=== PATIENT | female | born 1995 | race Caucasian/White ===

== ENCOUNTER → 2017-03-01 | Outpatient (CLI) | payer BC ==
[~2017-03-01] MED LIST: ALBU1AER9 INH; ALL60 PO; BCPILLS PO; FLVHFAUNK INH
[2017-03-03 01:52] LABS: CHLAMYDIA TRACH RNA*** NOT DETECTED (NOT DETECTED); GC (NEIS GONORRHOEAE)RNA** NOT DETECTED (NOT DETECTED)
== END | disposition home or self-care (01) ==
LOC: C.LABSPEC 11:40
PROVIDERS: ATTEND Physician Assistant
DX: Z01.419 Encounter for gynecological examination (general) (routine) without abnormal findings (principal)

== ENCOUNTER → 2017-03-01 | Outpatient (CLI) | payer BC | END | disposition home or self-care (01) | LOC: C.PAPS 10:58 | PROVIDERS: ATTEND Physician Assistant | DX: Z01.419 Encounter for gynecological examination (general) (routine) without abnormal findings (principal) ==

== ENCOUNTER → 2017-03-08 | Outpatient (CLI) | payer BC ==
--- NOTE | 2017-03-08 12:25 | DIAGNOSTIC IMAGING REPORT ---
FUSION CT SINUSES W/O CLINICAL HISTORY: J32.[address] SEGUNDO... PLEASE DO THIS A FUS COMPARISON STUDY: No previous studies for comparison. FINDINGS: Helical images were acquired in the transverse plane. Sagittal and coronal reformatted images were reviewed. Visualized portions of the intracranial contents are unremarkable. There is no hydrocephalus. The mastoid air cells are symmetrically aerated. The middle ear cavities are well aerated. There is partial opacification of the right maxillary sinus. There is mild to moderate mucosal thickening within the left maxillary sinus. There is minimal sphenoid sinus mucosal thickening. There is mild ethmoid air cell mucosal thickening. There is mild left frontal sinus mucosal thickening. There is a bony defect involving the medial wall the right maxillary sinus. It is unclear whether this is developmental, or acquired. There is partial pneumatization of the middle turbinates. Left ostomy unit is occluded. The right ostiomeatal unit is difficult to define. There is mild nasal septal deviation to the right. The ethmoid notches are protected The left olfactory groove measures 7 mm. The right olfactory groove measures 5 mm. The right nasoethmoidal recess is patent. There is narrowing of the left nasoethmoidal recess. The right frontal recess is patent. There is narrowing of the left frontal recess. IMPRESSION: 1. Pansinus disease most pronounced the right maxillary sinus 2. Bony defect involving the medial wall the right maxillary sinus. It is unclear whether this is acquired or congenital 3. Soft tissue obstruction of the left ostiomeatal unit 4. Partial pneumatization of middle turbinates 5. Narrowing of the left frontal and ethmoidal recesses Electronically signed by: Xander Estes M.D. 03/08/2017 12:24 PM Dictated Date/Time: 03/08/2017 12:14 PM
== END | disposition home or self-care (01) ==
LOC: C.CTS 11:49
DX: J32.9 Chronic sinusitis, unspecified (principal)

== ENCOUNTER → 2017-08-02 | Outpatient (CLI) | payer BC ==
[~2017-08-02] MED LIST changes: -ALBU1AER9 INH; -ALL60 PO; +FEXO1TAB49 PO; -FLVHFAUNK INH; +VNTHFA/IN INH
[2017-08-02 14:40] LABS: BASO % 0.6 %; BASO ABS # 0.04 K/uL (0-0.2); EOS % 3.5 %; EOS ABS # 0.23 K/uL (0-0.5); HEMATOCRIT 36.8 % (37-47); HEMOGLOBIN 12.5 g/dL (12.0-16.0); IG# 0.01 K/uL (0.00-0.02); LYMPH ABS # 1.84 K/uL (1.2-3.4); MEAN CELL VOLUME 84.8 fL (80-100); MEAN CORPUSCULAR HEMOGLOBIN 28.8 pg (25-34); MEAN PLATELET VOLUME 10.7 fL (7.4-10.4); MONO % 5.5 %; MONO ABS # 0.36 K/uL (0.11-0.59); NEUT % 62.2 %; NEUT ABS # 4.08 K/uL (1.4-6.5); PLATELET COUNT 197 K/uL (130-400); RED CELL DISTRIBUTION WIDTH CV 12.4 % (11.5-14.5); RED CELL DISTRIBUTION WIDTH SD 38.7 fL (36.4-46.3); WHITE BLOOD COUNT 6.56 K/uL (4.8-10.8)
[2017-08-02 14:46] LABS: PTT PATIENT 24.5 SECONDS (21.0-31.0)
[2017-08-02 15:04] LABS: POTASSIUM 3.5 mmol/L (3.5-5.1)
== END | disposition home or self-care (01) ==
LOC: C.LAB 13:05
DX: Z01.818 Encounter for other preprocedural examination (principal)

== ENCOUNTER → 2017-08-07 | Day surgery (SDC) | payer BC ==
[2017-06-23 14:49] VITALS: Ht 177.8 cm; Wt 104.5 kg
[~2017-08-07] VITALS: Ht 177.8 cm; Wt 104.5 kg
[~2017-08-07] MED LIST changes: +ATROPINE SULFATE 0.1 MG/ML 5ML SYR IV PRN; +BACITRACIN/POLYMYXIN B OINT 90 APPLN/28.4 GM TUBE EXT ONE; +CEFAZOLIN 2000MG IV PUSH 15 ML IV SCH; +CEFAZOLIN SOD 2000MG/15 ML IV PUSH ONE; +CETI10TA84 PO; +DEXAMETHASONE SOD INJ 4 MG/ML VIAL ONE; +ESMOLOL HCL 10 MG/ML 10 ML VIAL ONE; +EpHEDrine SULFATE INJ 50 MG/ML AMP IV PRN; +EpINEphrine INJ 1MG/ML AMP 1 MG/ML AMP ONE; +FENTANYL CITRATE INJ 50 MCG/1 ML 2 ML VIAL IV PRN; +FENTANYL CITRATE INJ 50 MCG/1 ML 2 ML VIAL ONE; +GLYCOPYRROLATE INJ 0.2 MG/ML VIAL ONE; +HYDROCODONE/ACETAMIN 5/325MG TAB PO PRN; +LACTATED RINGER'S 1000ML 1,000 ML IV SCH; +LIDOCAINE 4% MPF SOAK 5 ML = 1 DOSE ONE; +LIDOCAINE HCL 2% 2 ML VIAL (20MG/ML) ONE; +LIDOCAINE/EPINEPHRINE 1% 20 ML VIAL ONE; +MIDAZOLAM HCL 1 MG/ML 2ML VIAL ONE; +NEOSTIGMINE METHYLSULFATE 5 MG/5 ML SYR ONE; +ONDANSETRON INJ 2 MG/ML 2 ML VIAL IV PRN; +ONDANSETRON INJ 2 MG/ML 2 ML VIAL ONE; +OXYMETAZOLINE HCL 0.05% NA SPR 15 ML BTL ONE; +OXYMETAZOLINE HCL 0.05% NA SPR 15 ML BTL PRN; +OXYMETAZOLINE HCL 0.05% NA SPR 15 ML BTL SCH; +PROPOFOL IV EMULSION 10 MG/ML 20 ML VIAL ONE; +ROCURONIUM BROMIDE 10 MG/ML 5 ML VIAL ONE; +SCOPOLAMINE 1.5 MG TDSY TD ONE; +TRIAMCINOLONE ACET 40 MG/ML VIAL ONE
--- NOTE | 2017-08-07 10:26 | History and Physical: Surg Cnt ---
History & Physical Date August 07, 2017. Chief Complaint ADENOID HYPERTROPHY, CHRONIC SINUSITIS, SEPTAL DEVIATION, BILATERAL INFERIOR TURBINATE HYPERTROPHY History of Present Illness The patient is a 21 year old female with complaints of ADENOID HYPERTROPHY, CHRONIC SINUSITIS, SEPTAL DEVIATION, BILATERAL INFERIOR TURBINATE HYPERTROPHY WITH SYMPTOMS DESPITE MAXIMAL MEDICAL RX. 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, S/P OPEN REPAIR OF HAND FX, S/P WRIST SURGERY Allergies Coded Allergies: Sulfa Drugs (Unverified Allergy, Severe, HIVES, 08/07/17) Sulfamethoxazole (Unverified Allergy, Unknown, HIVES, 08/07/17) Trimethoprim (Unverified Allergy, Unknown, HIVES, 08/07/17) Home Medications Scheduled Control Pills ( Control Pills), 1 TAB PO DAILY Cetirizine (Zyrtec), 10 MG PO DAILY Scheduled PRN Albuterol Hfa (Ventolin Hfa), 2 PUFFS INH Q6H PRN for Shortness of Breath Physical Examination Skin: warm/dry, no rash Eyes: normal inspection, EOMI, sclerae normal ENT: + pertinent finding (4+ ADENOIDS, B ITH AND B MTH, MILD R DNS) Head: normocephalic, atraumatic Neck: supple, no adenopathy, trachea midline Respiratory/Chest: lungs clear, normal breath sounds, no respiratory distress Cardiovascular: regular rate, rhythm, no edema, no murmur Neurologic/Psych: no motor/sensory deficits, alert, normal reflexes, oriented x 3 Diagnosis ADENOID HYPERTROPHY, CHRONIC SINUSITIS, SEPTAL DEVIATION, BILATERAL INFERIOR TURBINATE HYPERTROPHY Plan of Treatment IMAGE-GUIDED B FESS AND INFERIOR TURBINATE REDUCTION, SEPTOPLASTY
--- NOTE | 2017-08-07 13:13 | [facility] Operative Report ---
Operative Report Operative Date August 07, 2017. Pre-Operative Diagnosis Chronic sinusitis, Deviated Septum, Bilateral Inferior Turbinate Hypertrophy, Adenoid Hypertrophy Post-Operative Diagnosis Same Procedure(s) Performed Image Guided Bilateral Endoscopic Sinus Surgery, Septoplasty, Bilateral Inferior Turbinate Reduction, Adenoidectomy Surgeon Dr. Silva Carry Out Clerk And Shelf Stocker Surgeon(s) None Estimated Blood Loss 150ML Findings 1. 4+ ADENOIDS 2. SEVERE B RANDI BULLOSAE 3. SEVERE B DNS 4. SEVERE B ITH 5. PUS IN R MAX SINUS 6. POLYPOID MPT INVOLVING L FRONTAL, B MAX, AND B ETHMOID SINUSES Specimens None Anesthesia Type General I attest to the content of the Intraoperative Record and any orders documented therein. Any exceptions are noted below.
--- NOTE | 2017-08-07 13:14 | Discharge Instructions ---
Discharge Instructions Date of Service August 07, 2017. Admission Reason for Admission: Chronic Sinusitis, Deviated Septum, Adenoid Hyper Discharge Discharge Diagnosis / Problem: SAME Discharge Goals Goal(s): Therapeutic intervention Activity Recommendations Activity Limitations: as noted below LIGHT ACTIVITY AND NO NOSE BLOWING FOR 2 WEEKS; NO DRIVING WHILE ON NORCO . Current Hospital Diet Patient's current hospital diet: Discharge Diet Recommended Diet: Regular Diet Procedures Procedures Performed: Image Guided Bilateral Endoscopic Sinus Surgery, Septoplasty, Bilateral Inferior Turbinate Reduction, Adenoidectomy Pending Studies Studies pending at discharge: no Medical Emergencies . Who to Call and When: Medical Emergencies: If at any time you feel your situation is an emergency, please call 911 immediately. . Non-Emergent Contact Non-Emergency issues call your: Surgeon . . "Provider Documentation" section prepared by Oliver Silva. .
--- NOTE | 2017-08-07 14:10 | OPERATIVE REPORT ---
DATE OF OPERATION: 08/07/2017 PREOPERATIVE DIAGNOSES: 1. Adenoid hypertrophy. 2. Chronic sinusitis. 3. Bilateral imani bullosa. 4. Bilateral septal deviation. 5. Bilateral inferior turbinate hypertrophy. POSTOPERATIVE DIAGNOSES: 1. Adenoid hypertrophy. 2. Chronic sinusitis. 3. Bilateral imani bullosa. 4. Bilateral septal deviation. 5. Bilateral inferior turbinate hypertrophy. PROCEDURES: 1. Adenoidectomy. 2. Adviqo fusion image-guided endoscopic sinus surgery consisting of: 1. Bilateral endoscopic imani bullosa resection. 2. Bilateral maxillary antrostomies. 3. Bilateral complete ethmoidectomies. 4. Balloon sinuplasty-assisted left frontal sinusotomy. 5. Septoplasty. 6. Bilateral inferior turbinate outfracture and turbinoplasty. SURGEON: Oliver Silva MD ANESTHESIA: General endotracheal. ESTIMATED BLOOD LOSS: 150 mL. FINDINGS: 1. Normal palate. 2. 4+ adenoids with complete obstruction of the choanae with adenoid tissue. 3. Severe bilateral imani bullosa. 4. Severe bilateral septal deviation. 5. Severe bilateral inferior turbinate hypertrophy. 6. Purulence within the right maxillary sinus. 7. Polypoid mucosal thickening involving the left frontal, bilateral maxillary, and bilateral ethmoid sinuses. SPECIMENS: None. COMPLICATIONS: None. INDICATIONS FOR THE PROCEDURE: The patient is a 21-year-old female with the above-mentioned history which has been unresponsive to maximum medical therapy including systemic antibiotics, systemic steroids, and allergy medications. The patient presents for the above-mentioned procedures on an outpatient elective basis. DETAILS OF THE PROCEDURE: After informed consent had been obtained from the patient and family, the patient was wheeled to the operating room and placed on the operating table in supine position. Monitors were placed. After induction of general endotracheal anesthesia, the table was turned to 90 degrees and the patient's head and neck were gently extended. Antibiotic ointment was applied to the lips and a mouth gag was carefully inserted, opened, and stabilized on a roll of towels. The palate was inspected and found to be normal. A catheter was inserted into the left nasal cavity and this was used to elevate the soft palate and uvula. A laryngeal mirror was used to inspect the nasopharynx and the intraoperative findings were 4+ adenoid tissue with complete obstruction of the choanae and nasopharynx with adenoid tissue. Powered instrumentation using a curved RADenoid blade was used to remove the adenoid tissue. Afrin-soaked tonsil balls were then placed within the nasopharynx. After allowing adequate time for hemostasis, the tonsil balls were removed and suction Bovie electrocautery was used to achieve adequate hemostasis within the nasopharynx. The nasal cavities and nasopharynx were irrigated and suctioned. Hemostasis was confirmed. The catheter and mouth gag were then removed. The patient was then placed in the neutral bed position. She was prepped in the usual fashion for image-guided endoscopic sinus surgery. The [employer] headset was placed over the forehead and was registered and calibrated and used throughout the case. The patient was noted to have severe right greater than left septal deviation and severe left greater than right inferior turbinate hypertrophy as well as severe bilateral middle turbinate hypertrophy with polypoid mucosa. The left side was first addressed. The left middle turbinate was injected with 1% lidocaine with 1:100,000 epinephrine. The lidocaine and epinephrine pledgets were then placed in the left middle meatus. The right side was then addressed in a similar fashion. The left-sided pledget was removed. A sickle knife was used to make a longitudinal incision of the middle turbinate and the lateral half of the middle turbinate was removed using straight Jean Paul-Cut forceps and powered instrumentation. There was a large imani bullosa filling most of the nasal cavity in the middle aspect. Straight Jean Paul-Cut forceps and powered instrumentation was used to perform the endoscopic imani bullosa resection. An uncinatectomy was then performed using a freer elevator, straight Jean Paul-Cut forceps, and powered instrumentation. The natural ostia of the maxillary sinus was identified and this was enlarged anteriorly, inferiorly, and posteriorly using backbiting forceps and powered instrumentation. A complete ethmoidectomy was then performed using powered instrumentation. Using a curved frontal sinus suction under image guidance, the left frontal sinus was then cannulated. The suction was removed and a #7 frontal sinus balloon was inserted and inflated to 12 atmospheres of pressure to dilate the frontal recess tract. Polypoid tissue was then removed from the left frontal sinus using powered instrumentation. A pledget was then placed in the left ethmoid cavity. The right side was then addressed in a similar fashion, however, on this side, a frontal sinusotomy was not performed. On this side, there was purulence within the right maxillary sinus which appeared to be somewhat hypoplastic. Of note, there was polypoid mucosal thickening involving all the above-mentioned paranasal sinuses. The patient had normal sphenoid sinuses on the CT scan as well as a normal right frontal sinus on the CT scan and therefore, the sinuses were not addressed. Septoplasty was then performed. The septum was injected with 1% lidocaine with 1:100,000 epinephrine. A #15 scalpel was used to make a left [place] incision through which the left-sided mucoperichondrial mucoperiosteal flap was elevated. A #15 scalpel was then used to incise the quadrangular cartilage with care to preserve a 1.5-cm dorsal and caudal strut and the right-sided mucoperichondrial mucoperiosteal flap was elevated through this cartilaginous incision. The patient has significant septal deviation to the left due to an inferior septal spur which started anteriorly and extended posteriorly and was comprised of both cartilage and bone. This was removed using a combination of Timothy swivel knife as well as V-shaped osteotome, mallet, and Carlos forceps. Most of the right-sided septal deviation was due to superior deviation both anteriorly and posteriorly due to the cartilage which was removed using the Timothy swivel knife and bone which was removed using Thompson-Reji forceps. The septal cavity was then suctioned. The left [place] incision was closed with several simple interrupted 4-0 chromic sutures. A 4-0 plain gut suture on a Mikey needle was then used to perform a quilting stitch of the mucoperichondrial mucoperiosteal flaps bilaterally to help prevent septal hematoma. A Uribe elevator was then used to infracture and subsequently outfracture the inferior turbinates bilaterally. The inferior turbinates were injected with 1% lidocaine with 1:100,000 epinephrine. A 2.0 mm turbinate blade using powered instrumentation was then used to perform bilateral inferior turbinoplasties in a submucosal fashion. Sinonasal cavities were then suctioned. A mixture of Stammberger nasal dressing 1:1 with Kenalog 40 mg per mL was then instilled into the ethmoid cavities/middle meati due to the nasal polyposis. An orogastric tube was placed and the stomach was suctioned free of air and stomach contents. This marked the end of the case. The patient tolerated the procedure well and there were no apparent complications. The patient was extubated and transferred to recovery room in stable condition. I attest to the content of the Intraoperative Record and any orders documented therein. Any exception s are noted below.
[2017-08-07 14:22] VITALS: TEMP 36.5
--- NOTE | 2017-08-07 14:50 | Anesthesia Progress Nt - [facility] ---
Anesthesia Post Op Note Date & Time August 07, 2017 at 14:50 Vital Signs Pain Intensity: 2 Vital Signs Past 12 Hours Date Time Temp Pulse Resp B/P (MAP) Pulse Ox O2 Delivery O2 Flow Rate FiO2 08/07/17 14:22 36.5 79 20 128/82 (97) 100 Room Air 08/07/17 14:16 77 10 08/07/17 14:16 79 10 98 08/07/17 14:15 140/83 08/07/17 14:13 36.5 84 12 140/83 99 Room Air 08/07/17 14:11 81 15 08/07/17 14:11 80 15 98 08/07/17 14:10 131/88 08/07/17 14:06 83 13 100 08/07/17 14:06 84 13 08/07/17 14:05 130/84 08/07/17 14:01 82 15 08/07/17 14:01 83 15 100 08/07/17 14:00 130/84 08/07/17 13:56 84 9 08/07/17 13:56 83 9 100 08/07/17 13:55 134/82 08/07/17 13:51 87 17 08/07/17 13:51 86 17 100 08/07/17 13:50 130/87 08/07/17 13:46 88 17 100 08/07/17 13:46 88 17 08/07/17 13:45 126/70 08/07/17 13:41 88 15 100 08/07/17 13:41 88 15 08/07/17 13:40 130/72 08/07/17 13:36 89 0 08/07/17 13:36 89 0 100 08/07/17 13:35 125/71 08/07/17 13:31 86 0 100 08/07/17 13:31 86 0 08/07/17 13:30 118/65 08/07/17 13:26 94 114/63 100 08/07/17 13:26 36.0 94 20 114/63 100 Humidified Oxygen 6 Mask 08/07/17 13:26 94 08/07/17 10:01 36.5 97 16 124/76 (92) 96 Room Air Notes Mental Status: alert / awake / arousable, participated in evaluation Pt Amnestic to Procedure: Yes Nausea / Vomiting: adequately controlled Pain: adequately controlled Airway Patency, RR, SpO2: stable & adequate BP & HR: stable & adequate Hydration State: stable & adequate Anesthetic Complications: no major complications apparent
[2017-08-07 14:59] VITALS: BP 140/85; PULSE 79; O2SAT 100
== END | disposition home or self-care (01) ==
LOC: X.SURG 09:45
DX: J35.2 Hypertrophy of adenoids (principal); J32.9 Chronic sinusitis, unspecified; J34.2 Deviated nasal septum; J34.3 Hypertrophy of nasal turbinates; J45.909 Unspecified asthma, uncomplicated; G47.33 Obstructive sleep apnea (adult) (pediatric); E66.9 Obesity, unspecified; Z86.19 Personal history of other infectious and parasitic diseases; Z88.2 Allergy status to sulfonamides; Z88.1 Allergy status to other antibiotic agents; Z79.3 Long term (current) use of hormonal contraceptives

== ENCOUNTER 2020-07-28 14:36 | Inpatient (IN) ==
[2020-07-28] MEDS ORDERED: miSOPROStoL 50 MCG TAB PO ONE (21:18)
[2020-07-28] MEDS ORDERED: OXYTOCIN 30 UNITS/500 ML BAG IV PRN (21:18)
[2020-07-28 21:50] LABS: Hematocrit (blood only) 32.5 % (37-47); Hemoglobin 11.4 g/dL (12.0-16.0); Mean Corpuscular Hemoglobin 28.8 pg (25-34); Mean Corpuscular Hgb Conc 35.1 g/dL (32-36); Mean Corpuscular Volume 82.1 fL (80-100); Mean Platelet Volume 11.3 fL (7.4-10.4); Platelet Count 187 K/uL (130-400); RDW Coefficient of Variation 14.5 % (11.5-14.5); RDW Standard Deviation 43.5 fL (36.4-46.3); Red Blood Count 3.96 M/uL (4.2-5.4); White Blood Count 8.66 K/uL (4.8-10.8)
[2020-07-29] MEDS: miSOPROStoL 50 MCG TAB PO SCH ×4 (02:26→16:42)
[2020-07-29] MEDS: LACTATED RINGER'S 1,000 ML IV PRN ×2 (04:15→09:30)
[2020-07-29] MEDS ORDERED: BUTORPHANOL TARTRATE 1 MG/ML VIAL IV PRN (04:26)
[2020-07-29] MEDS ORDERED: DINOPROSTONE 10 MG INSERT PV ONE (10:15)
[2020-07-29] MEDS ORDERED: OXYTOCIN 30 UNITS/500 ML BAG IV PRN (23:21)
[2020-07-30] MEDS: LACTATED RINGER'S 1,000 ML IV PRN ×5 (00:23→20:06)
[2020-07-30] MEDS ORDERED: SODIUM CHLORIDE 0.9% INJ 10 ML VIAL ONE (08:09)
[2020-07-30] MEDS ORDERED: ePHEDrine sulfate 50 MG/ML AMP ONE (08:09)
[2020-07-30] MEDS ORDERED: fentaNYL citrate 100 MCG/2 ML VIAL ONE (08:09)
[2020-07-30] MEDS ORDERED: BUPIVACAINE 0.25% 30 ML VIAL ONE (08:09)
[2020-07-30] MEDS ORDERED: fentaNYL 2MCG/ML ROPIVACAINE 1.25MG/ML 100 ML BAG EPI ONE (08:10)
[2020-07-30] MEDS ORDERED: NALOXONE HCL 0.4 MG/1 ML VIAL/CARP IV PRN (08:14)
[2020-07-30] MEDS ORDERED: ePHEDrine sulfate 50 MG/ML AMP IV PRN (08:14)
[2020-07-30] MEDS ORDERED: NALOXONE HCL 1 MG in SODIUM CHLORIDE 0.9% 1000ML 1,000 ML IV PRN (08:14)
[2020-07-30] MEDS ORDERED: diphenhydrAMINE 50 MG/ML VIAL IV PRN (08:14)
[2020-07-30] MEDS ORDERED: ONDANSETRON INJ 2 MG/ML 2 ML VIAL IV PRN (08:14)
--- NOTE | 2020-07-30 08:39 | Anesthesiology Consultation ---
Date of Service July 30, 2020 Assessment & Plan Chart Review Chart Review: Patient NOT seen in Pre Admission Testing and Acceptable Risk for Labor Epidural Consults Requested none ASA ASA2 Proposed Anesthesia Anesthesia Type: Labor Epidural and CSE Risk / Benefits Reviewed With: PT / POA / Parent / Guardian, Accepts Plan and Informed Consent Obtained History Height/Weight Height: 5 ft 9 in Weight: 123.377 kg Allergies Allergy/AdvReac Type Severity Reaction Status Date / Time Sulfa (Sulfonamide Allergy Severe HIVES Verified 07/28/20 21:25 Antibiotics) sulfamethoxazole Allergy Intermediate HIVES Verified 07/30/20 08:20 trimethoprim Allergy Intermediate HIVES Verified 07/30/20 08:20 animal dander Allergy Mild Sneezing Verified 07/30/20 08:20 grass pollen Allergy Mild Sneezing Verified 07/30/20 08:20 house dust Allergy Mild Sneezing Verified 07/30/20 08:20 mold Allergy Mild Watery Eye Verified 07/30/20 08:20 ragweed pollen Allergy Mild Sneezing Verified 07/30/20 08:20 tree and shrub pollen Allergy Mild Sneezing Verified 07/30/20 08:20 weed pollen Allergy Mild Sneezing Verified 07/30/20 08:20 Medications Home Medications Medication Instructions Recorded Confirmed Last Taken albuterol sulfate 2 puff INHALATION QID PRN 07/28/20 07/28/20 Unknown vit no.[id number] 1 tab PO DAILY 07/28/20 07/28/20 07/28/20 08:00 [ Vitamin] Active Medications Generic Name Dose Route Start Last Admin Trade Name Freq PRN Reason Stop Dose Admin Lactated Ringer's 1,000 mls @ 125 mls/hr 07/28/20 21:18 07/30/20 08:25 Lr IV 07/30/20 21:17 999 mls/hr .Q8H PRN Administration L&D Protocol Protocol Oxytocin 30 units in 500 mls @ 16 mls/hr 07/29/20 23:21 07/30/20 07:45 Pitocin IV 07/31/20 23:20 0.96 units/hr .Q24H PRN 16 mls/hr Labor Induction/Augmentation Titration Protocol 0.96 UNITS/HR Misoprostol 50 mcg 07/29/20 02:30 07/29/20 16:42 Misoprostol 50 Mcg Tab PO 08/28/20 02:29 Not Given Q4H SLADE NPO Date Last Intake of Fluids: 07/30/20 Time Last Intake of Fluids: 08:00 Date Last Intake of Solids: 07/29/20 Time Last Intake of Solids: 17:00 Past Medical History Medical History Mild intermittent asthma No significant past medical history Obesity Exercise / Class Metabolic Activity II 4-5 Yardwork/Stairs/Walk up hill Past Family History Family History Mother Allergies Other Hypertension No significant family history Denies family history of Ovarian cancer Prostate cancer Myocardial infarction Breast cancer Colorectal cancer Past Surgical History Surgical History History of endoscopic sinus surgery History of removal of ovarian cyst Left ovary S/P tonsillectomy and adenoidectomy S/P wisdom tooth extraction Past Anesthesia History No Hx of Anesthesia Complications and No Family Hx of Anesthesia Complications History of PONV No Hx of PONV and No Hx of Motion Sickness Social History Smoking Status: Never smoker Do You Dip or Chew Tobacco: No Hx Alcohol Use: Yes Hx Substance Use: No substance use type: does not use Review of Systems no chest pain or sob Physical Exam Vital Signs Last Vital Signs Temp 36.6 C 07/30/20 07:11 Pulse 95 H 07/30/20 08:35 Resp 20 07/30/20 07:11 BP 153/88 H 07/30/20 08:35 Pulse Ox 99 07/30/20 08:34 Constitutional + obese ENMT Mouth: no TMJ abnormality Thyromental Distance: > or= 3.5 Finger Breadths Mallampati Class: II Neck normal visual inspection Respiratory normal respiratory effort Auscultation: lungs clear to auscultation bilaterally Cardiovascular Rate/Rhythm: regular rate and regular rhythm Musculoskeletal Spine: normal cervical ROM Neurologic moves all extremities Psychiatric Orientation: alert and oriented x 3 Testing Laboratory Results 07/28/20 21:42
[2020-07-30] MEDS: fentaNYL 2MCG/ML ROPIVACAINE 1.25MG/ML 100 ML BAG EPI PRN ×2 (08:58→23:22)
[2020-07-30] MEDS: miSOPROStoL 50 MCG TAB PO SCH ×2 (09:08→18:41)
[2020-07-30] MEDS ORDERED: Nursing to Pharmacy Communication SCH ×2 (10:45→12:30)
[2020-07-31] MEDS ORDERED: OXYTOCIN 30 UNITS/500 ML BAG IV PRN (03:43)
[2020-07-31] MEDS ORDERED: SUPERCREAM 0.870% 15 GM JAR EXT PRN (03:43)
[2020-07-31] MEDS ORDERED: METHYLERGONOVINE MALEATE 0.2 MG/ML AMP IM ONE (03:43)
[2020-07-31] MEDS ORDERED: ACETAMINOPHEN W/CODEINE #3 1 TAB PO PRN (03:43)
[2020-07-31] MEDS ORDERED: oxyCODONE/ACETAMINOPHEN 5mg/325mg TAB PO PRN (03:43)
[2020-07-31] MEDS ORDERED: BENZOCAINE 20% AER SPR 82.5 GM CAN EXT PRN (03:43)
[2020-07-31] MEDS ORDERED: DIPHTHERIA/TETANUS/PERTUSSIS 0.5 ML SYR/VIAL IM ONE (03:43)
[2020-07-31] MEDS ORDERED: bisacodyL 10 MG SUPP PR PRN (03:43)
[2020-07-31] MEDS ORDERED: HYDROCORTISONE ACETATE 25 MG SUPP PR PRN (03:43)
--- NOTE | 2020-07-31 04:15 | Anesthesia Procedure Note ---
Date of Service July 31, 2020 Anesthesia Post Epidural Note Vital Signs Vital Signs: Temp Pulse Resp BP Pulse Ox 36.9 C 105 H 18 142/65 H 97 07/30/20 23:46 07/31/20 04:02 07/30/20 23:46 07/31/20 04:02 07/31/20 03:30 Pain Intensity Bilateral Lower Abdomen: Pain Intensity: 1 Notes Mental Status: alert / awake / arousable and participated in evaluation Nausea / Vomiting: adequately controlled Pain: adequately controlled Airway Patency, RR, SpO2: stable & adequate BP & HR: stable & adequate Hydration State: stable & adequate Neuraxial Anesthesia: was administered and sensory block is resolving Anesthetic Complications: no major complications apparent and Pt Satisfied with anesthetic care Epidural: Removed without complications and With tip intact
[2020-07-31] MEDS: IBUPROFEN 600 MG TAB PO PRN ×3 (04:18→14:36)
[2020-07-31] MEDS: ACETAMINOPHEN 325 MG TAB PO PRN ×2 (04:19→14:36)
[2020-07-31] MEDS: PRENATAL VITAMIN 1 TAB PO SCH (08:48)
[2020-07-31] MEDS: FERROUS SULFATE 325 MG TAB PO SCH (08:48)
[2020-07-31] MEDS: DOCUSATE SODIUM 100 MG CAP PO SCH ×2 (08:48→20:58)
--- NOTE | 2020-07-31 11:03 | Delivery Summary ---
DATE OF OPERATION: 07/31/2020 The patient is a 1, para 1. Blood type B positive, group B strep negative, developed hypertension in the office. Specifically, her systolics were running above 160 on 2 different consecutive visits by about a week. Also, the pressures were getting worse. She was brought in for induction, given p.o. Cytotec 2 doses and she was given a Cervidil tape. After Cervidil tape was removed. She was started on IV Pitocin. Eventually, the membranes were ruptured surgically at about 2+ cm. Fluid was clear. She eventually received epidural for pain control with good pain relief. We at one point had to turn back the Pitocin because of lack of variability and some type 2 decelerations. We then restarted it. Eventually, she went to full dilatation. She had lip on the right side, we had to wait for the lip to clear. After the lip cleared, she pushed and delivered a live female via direct occiput anterior position over an intact perineum. There was a nuchal cord x1, which was reduced over the head. 's body was delivered without difficulty. Infant was suctioned through the mouth and the nose. Cord was allowed to pulse for 1 minute, then it was clamped, cut by the father. Cord blood was taken. With IV Pitocin and IM Methergine, the placenta was removed intact. There was a small superficial laceration at 5 o'clock, which was repaired with a running 2-0 Vicryl. The top of the defect was identified. A suture was placed above that and approximation was done out and beyond the hymenal ring and there was a very small laceration at about 8 o'clock and this was repaired with #1 [id number] suture of Vicryl. Following this, vag exam revealed no hematoma formation or sponges in the vagina. Estimated blood loss was 200 mL. The patient tolerated the procedure well. I attest to the content of the Intraoperative Record and any orders documented therein. Any exception s are noted below.
[2020-08-01 06:23] LABS: Hematocrit (blood only) 30.9 % (37-47); Hemoglobin 10.4 g/dL (12.0-16.0); Mean Corpuscular Hemoglobin 28.1 pg (25-34); Mean Corpuscular Hgb Conc 33.7 g/dL (32-36); Mean Corpuscular Volume 83.5 fL (80-100); Mean Platelet Volume 11.1 fL (7.4-10.4); Platelet Count 165 K/uL (130-400); RDW Coefficient of Variation 14.7 % (11.5-14.5); White Blood Count 14.69 K/uL (4.8-10.8)
--- NOTE | 2020-08-01 08:14 | Obstetrical Progress Note ---
Date of Service August 01, 2020 Assessment & Plan Admission and Anticipated Discharge Date Admission Date: July 28, 2020 Physical Exam Physical Exam: abdomen soft and non tender no calf tenderness ambulating well vaginal bleeding scant hgb 10.4 Results & Data ([facility]) Vital Signs (Past 12 Hours) Vital Signs Temp Pulse Resp BP 07/31/20 23:30 36.4 C L 80 18 145/91 H
[2020-08-01] MEDS: FERROUS SULFATE 325 MG TAB PO SCH (08:40)
[2020-08-01] MEDS: DOCUSATE SODIUM 100 MG CAP PO SCH ×2 (08:40→21:09)
[2020-08-01] MEDS: IBUPROFEN 600 MG TAB PO PRN ×2 (08:40→21:09)
[2020-08-01] MEDS: PRENATAL VITAMIN 1 TAB PO SCH (08:40)
[2020-08-01] MEDS ORDERED: bisacodyL 5 MG TABEC PO SCH (20:00)
[2020-08-02 06:45] LABS: Hematocrit (blood only) 31.8 % (37-47); Hemoglobin 10.8 g/dL (12.0-16.0)
[2020-08-02] MEDS: PRENATAL VITAMIN 1 TAB PO SCH (08:28)
[2020-08-02] MEDS: FERROUS SULFATE 325 MG TAB PO SCH (08:28)
[2020-08-02] MEDS: IBUPROFEN 600 MG TAB PO PRN (08:28)
[2020-08-02] MEDS: DOCUSATE SODIUM 100 MG CAP PO SCH (08:28)
--- NOTE | 2020-08-02 11:39 | Obstetrical Progress Note ---
Date of Service August 02, 2020 Assessment & Plan Admission and Anticipated Discharge Date Admission Date: July 28, 2020 Physical Exam Physical Exam: abdomen soft and non tender no calf tenderness ambulating well vaginal bleeding scant hgb 10.8 Results & Data ([facility]) Vital Signs (Past 12 Hours) Vital Signs Temp Pulse Resp BP Pulse Ox 08/02/20 10:28 36.7 C 90 18 137/84 98 08/02/20 08:05 36.7 C 90 18 137/84 98 08/02/20 00:40 36.6 C 88 18 127/78 98
== END 2020-08-02 12:55 | disposition home or self-care (01) | DRG 807 ==
LOC: 4S1 20:24 → 4S2 07-31 06:30